=== PATIENT | male | born 1985 | race Caucasian/White ===

== ENCOUNTER 2024-03-16 13:31 | Emergency (ER) | payer MEDICARE, MEDICAID ==
[2024-03-16] MEDS ORDERED: Ibuprofen 200 MG TAB ONE ×2 (17:04→17:05)
== END 2024-03-16 17:55 | disposition home or self-care (01) ==
LOC: ERS 13:31
DX: M19.012 Primary osteoarthritis, left shoulder (principal); W05.0XXA Fall from non-moving wheelchair, initial encounter
CPT/HCPCS: 99283